=== PATIENT | male | born 1990 | race Caucasian/White ===

== ENCOUNTER → 2016-12-11 | Day surgery (SDC) | payer OTHER | END | disposition home or self-care (01) | LOC: SDC 11:09 | DX: K40.90 Unilateral inguinal hernia, without obstruction or gangrene, not specified as recurrent (principal); F17.210 Nicotine dependence, cigarettes, uncomplicated | CPT/HCPCS: C1781; J1885; J2704; J2765 ==

== ENCOUNTER 2016-12-15 00:51 | Emergency (ER) | payer OTHER | END 2016-12-15 03:00 | disposition home or self-care (01) | LOC: ER 00:51 | DX: R11.2 Nausea with vomiting, unspecified (principal); F17.210 Nicotine dependence, cigarettes, uncomplicated | CPT/HCPCS: 36415; 96361; 96374 ==